=== PATIENT | female | born 1990 | race Caucasian/White ===

== ENCOUNTER 2017-01-25 18:24 | Emergency (ER) | payer OTHER ==
[~2017-01-25] VITALS: Ht 167.6 cm; Wt 76.0 kg
[~2017-01-25 18:24] MED LIST: FERR240T9 PO; PREN1TAB49 PO
[2017-01-25 18:51] VITALS: Ht 167.6 cm; Wt 76.0 kg
[2017-01-25] MEDS ORDERED: LIDOCAINE 1% (MDV) 20 ML INJ SC ONE (20:00)
[2017-01-25] MEDS ORDERED: IBUP-1542 PO (21:19)
[2017-01-25] MEDS ORDERED: CEPH-443 PO (21:19)
[2017-01-25] MEDS ORDERED: SULF1TAB31 PO (21:19)
--- NOTE | 2017-01-25 22:24 | ERD ---
ER Documentation Chief Complaint Date/Time DATE: 01/25/17 TIME: 22:20 Chief Complaint abscess left chin HPI 26-year-old female patient with no significant past medical history presents to the ED complaining of an abscess noted on the left jawline area that started intermittently 5 months ago. Reports that got worse a few days ago. States it started to itch and to smell bad. States that she did have a previous history of an abscess in her left axillary region. Reports that went away with antibiotics. States that this abscess in her left jawline became painful. Denies any chest pain, shortness of breath, abdominal pain, nausea, vomiting, fever, chills, dysphagia, odynophagia. ROS All systems reviewed and are negative except as per history of present illness. Medications Home Meds Active Scripts Ibuprofen* (Motrin*) 600 Mg Tab, 600 MG PO Q6, #30 TAB Prov:CLEOPATRA SUTHERLAND PA-C 01/25/17 Cephalexin* (Keflex*) 500 Mg Capsule, 500 MG PO QID for 7 Days, CAP Prov:CLEOPATRA SUTHERLAND PA-C 01/25/17 Sulfamethoxazole/Trimethoprim* (Bactrim Ds* Tablet) 1 Each Tablet, 1 TAB PO BID , #14 TAB Prov:CLEOPATRA SUTHERLAND PA-C 01/25/17 Reported Medications Ferrous Gluconate (Iron) 1 Tab Tablet, 1 TAB PO DAILY, TAB 01/31/16 Vits W-Ca,Fe,Fa(<1MG) () 1 Tab Tablet, 1 TAB PO DAILY 11/25/12 Allergies Allergies: Coded Allergies: No Known Allergy (Unverified , 05/14/16) PMhx/Soc History of Surgery: Yes ( X 3.) Anesthesia Reaction: No Hx Neurological Disorder: No Hx Respiratory Disorders: No Hx Cardiac Disorders: No Hx Psychiatric Problems: No Hx Miscellaneous Medical Probl: No Hx Alcohol Use: No Hx Substance Use: No Hx Tobacco Use: No Smoking Status: Never smoker Physical Exam Vitals Vital Signs Date Time Temp Pulse Resp B/P Pulse Ox O2 Delivery O2 Flow Rate FiO2 01/25/17 18:51 99.1 83 20 126/75 100 Physical Exam Const: [id number], well-nourished. In no acute distress. Head: Atraumatic, normocephalic Eyes: Normal Conjunctiva without injection. No purulent discharge. PERRL. EOMI ENT: Normal external ear. Ear canal without erythema. Tympanic membrane pearly kaur without effusion or bulging. Nasal canal clear with normal turbinates. Moist oropharynx without tonsillar exudates. Non-erythematous pharynx. Uvula midline. No drooling. No trismus. Neck: Full range of motion. No meningismus. No cervical lymphadenopathy. Resp: Clear to auscultation bilaterally. No wheezing, rhonchi, rales, or crackles. No accessory muscle use. No retractions. Cardio: Regular rate and rhythm. No murmurs, rubs or gallops. Abd: Soft, non tender, non distended. Normal bowel sounds. No palpable masses. No rebound tenderness. No guarding. Skin: No petechiae or rashes. 3 cm fluctuant abscess noted on the left jawline inferior to the left ear. Erythematous but no edema noted. No lymphatic streaking. No induration. Minimal bleeding noted. Slight punctate with spontaneous drainage noted. Back: No midline tenderness. No CVA tenderness. Ext: No cyanosis, or edema. Neur: Awake and alert. Psych: Normal Mood and Affect Results 24 hrs Current Medications Medications (Trade) Dose Ordered Sig/Benjy Route PRN Reason Start Time Stop Time Status Last Admin Dose Admin Lidocaine (Xylocaine 1% (Mdv) 20 ml) 20 ml ONCE ONCE SC 01/25/17 20:00 01/25/17 20:01 DC Procedures/MDM This is a 26-year-old female patient with no significant past medical history presents the ED complaining of a left jawline abscess that occurred intermittently 5 months ago and got worse in last few days. Patient is afebrile and nontoxic-appearing. Patient has normal vital signs. Patient gave consent to perform incision and drainage. 11 blade scalpel used to make a small incision. Abscess Incision and Drainage with irrigation by me: Location: [Left jawline inferior to left ear] Anesthesia: [2 cc Local 2% Lidocaine] Technique: [Irrigated. Disrupted loculations w/ instrumentation ] Packing: [None] Complications: [Neurovascularly intact post procedure] Copious purulent discharge drained from the abscess. Low suspicion for scabies, SJS/TEN, erythema multiforme, sepsis, cellulitis, necrotizing fascitis, lymphadenitis, lymphoma, gangrene, meningococcemia or other emergent conditions. This case is discussed with my supervising physician , Dr. Moreno who agreed with the management and discharge plan. Keflex and Bactrim was prescribed to patient. Instructed patient to return to the ED sooner for any worsening symptoms. Follow up with primary care physician or return to the ED in 2 days for a wound check. Patient's questions were answered. Patient understood and agreed with discharge plan. Departure Diagnosis: Primary Impression: Abscess Condition: Stable Patient Instructions: Abscess, Incision And Drainage Referrals: [facility] (PCP) [facility] YOU HAVE RECEIVED A MEDICAL SCREENING EXAM AND THE RESULTS INDICATE THAT YOU DO NOT HAVE A CONDITION THAT REQUIRES URGENT TREATMENT IN THE EMERGENCY DEPARTMENT. FURTHER EVALUATION AND TREATMENT OF YOUR CONDITION CAN WAIT UNTIL YOU ARE SEEN IN YOUR DOCTORS OFFICE WITHIN THE NEXT 1-2 DAYS. IT IS YOUR RESPONSIBILITY TO MAKE AN APPOINTMENT FOR FOLOW-UP CARE. IF YOU HAVE A PRIMARY DOCTOR --you should call your primary doctor and schedule an appointment IF YOU DO NOT HAVE A PRIMARY DOCTOR YOU CAN CALL OUR PHYSICIAN REFERRAL HOTLINE AT IF YOU CAN NOT AFFORD TO SEE A PHYSICIAN YOU CAN CHOSE FROM THE FOLLOWING [facility] [address] [facility]. [facility] [address] [facility]. [facility] [address] [facility] [facility] [address] [facility] [address] [facility]. [facility]. [address] [facility]. [facility] YOU HAVE RECEIVED A MEDICAL SCREENING EXAM AND THE RESULTS INDICATE THAT YOU DO NOT HAVE A CONDITION THAT REQUIRES URGENT TREATMENT IN THE EMERGENCY DEPARTMENT. FURTHER EVALUATION AND TREATMENT OF YOUR CONDITION CAN WAIT UNTIL YOU ARE SEEN IN YOUR DOCTORS OFFICE WITHIN THE NEXT 1-2 DAYS. IT IS YOUR RESPONSIBILITY TO MAKE AN APPOINTMENT FOR FOLOW-UP CARE. IF YOU HAVE A PRIMARY DOCTOR --you should call your primary doctor and schedule and appointment IF YOU DO NOT HAVE A PRIMARY DOCTOR YOU CAN CALL OUR PHYSICIAN REFERRAL HOTLINE AT . IF YOU CAN NOT AFFORD TO SEE A PHYSICIAN YOU CAN CHOSE FROM THE FOLLOWING [facility] INSTITUTIONS: [facility] [address] [place] [address] [facility] [address] [place] [address] [facility] [address] [place] [address] [facility]CIALT[facility] Additional Instructions: Follow up in 2 days in your clinic for wound check. Call your primary care doctor TOMORROW for an appointment during the next 2-3 days.See the doctor sooner or return here if your condition worsens before your appointment time. CLEOPATRA SUTHERLAND PA-C Jan 25, 2017 22:24 CLEOPATRA SUTHERLAND PA-C Jan 25, 2017 22:24
== END 2017-01-25 21:29 | disposition home or self-care (01) ==
LOC: FTE 18:24
DX: L02.01 Cutaneous abscess of face (principal)
CPT/HCPCS: 10061; Z7502; Z7610

== ENCOUNTER 2019-02-06 19:32 | Emergency (ER) | payer OTHER ==
[~2019-02-06] VITALS: Ht 154.9 cm; Wt 79.0 kg
[~2019-02-06 19:32] MED LIST changes: +CEPH-443 PO; +IBUP-1542 PO; +SULF1TAB31 PO
[2019-02-06 19:40] VITALS: Ht 154.9 cm; Wt 79.0 kg
--- NOTE | 2019-02-06 20:19 | ERD ---
ER Documentation Chief Complaint Chief Complaint abd pain x 2 days, found out she is , denies vb HPI Patient is a 28 years old female with past medical history of tubal ligation in 2017 presenting to the clinic for abdominal pains X 2 days. Patient rates her pain as 4 out of 10 and states that she had a positive result yesterday. Patient admits to buying [id number] test from the pharmacy. Patient denies fever, chills, night sweats, nausea, emesis, constipation, hematochezia. Patient admits to dysuria but denies bladder fullness, urinary frequency, and vaginal discharge. Patient reports history of with IUDs in the past. ROS All systems reviewed and are negative except as per history of present illness. Medications Home Meds Active Scripts Ibuprofen* (Motrin*) 800 Mg Tab, 800 MG PO Q6, #30 TAB Prov:MARILYN ZAMBRANO PA-C 02/06/19 Nitrofurantoin Monohyd Macrocr* (Macrobid*) 100 Mg Capsr, 100 MG PO BID for 7 Days, #14 CAP Prov:MARILYN ZAMBRANO PA-C 02/06/19 Ibuprofen* (Motrin*) 600 Mg Tab, 600 MG PO Q6, #30 TAB Prov:CLEOPATRA SUTHERLAND PA-C 01/25/17 Cephalexin* (Keflex*) 500 Mg Capsule, 500 MG PO QID for 7 Days, CAP Prov:CLEOPATRA SUTHERLAND PA-C 01/25/17 Sulfamethoxazole/Trimethoprim* (Bactrim Ds* Tablet) 1 Each Tablet, 1 TAB PO BID, #14 TAB Prov:CLEOPATRA SUTHERLAND PA-C 01/25/17 Reported Medications Ferrous Gluconate (Iron) 1 Tab Tablet, 1 TAB PO DAILY, TAB 01/31/16 Vits W-Ca,Fe,Fa(<1MG) () 1 Tab Tablet, 1 TAB PO DAILY 11/25/12 Allergies Allergies: Coded Allergies: No Known Allergy (Unverified , 02/06/19) PMhx/Soc History of Surgery: Yes ( X 3.) Anesthesia Reaction: No Hx Neurological Disorder: No Hx Respiratory Disorders: No Hx Cardiac Disorders: No Hx Psychiatric Problems: No Hx Miscellaneous Medical Probl: No Hx Alcohol Use: No Hx Substance Use: No Hx Tobacco Use: No Smoking Status: Never smoker FmHx Family History: No diabetes, No coronary disease, No other Physical Exam Vitals Vital Signs Date Temp Pulse Resp B/P (MAP) Pulse Ox O2 O2 Flow FiO2 Time Delivery Rate 02/06/19 100.0 87 18 126/81 100 19:40 (96) Physical Exam Const: No acute distress Head: Atraumatic Eyes: Normal Conjunctiva Resp: Clear to auscultation bilaterally Cardio: Regular rate and rhythm, no murmurs Abd: Soft, non tender, non distended. Normal bowel sounds. Negative Del Toro sign, Rovsing sign, McBurney's point tenderness, no guarding, negative rebound tenderness, negative Martel Posey sign, negative Marcus sign. Skin: No petechiae or rashes Back: No midline or flank tenderness, negative CVAT. Ext: No cyanosis, or edema Neur: Awake and alert Psych: Normal Mood and Affect Result Diagram: 02/06/19201902/06/192019 Results 24 hrs Laboratory Tests Test 02/06/19 20:04 02/06/19 20:12 02/06/19 20:20 Urine Color YELLOW Urine Clarity CLOUDY Urine pH 6.0 Urine Specific Catlett 1.019 Urine Ketones NEGATIVE mg/dL Urine Nitrite POSITIVE mg/dL Urine Bilirubin NEGATIVE mg/dL Urine Urobilinogen NEGATIVE mg/dL Urine Leukocyte Esterase 3+ Jennifer/ul Urine Microscopic RBC 24 /HPF Urine Microscopic WBC > 182 /HPF Urine Squamous Epithelial Cells FEW /HPF Urine Bacteria MODERATE /HPF Urine Mucus FEW /HPF Urine Hemoglobin NEGATIVE mg/dL Urine Glucose NEGATIVE mg/dL Urine Total Protein 1+ mg/dl POC Beta HCG, Qualitative NEGATIVE White Blood Count 10.1 10^3/ul Red Blood Count 4.89 10^6/ul Hemoglobin 12.7 g/dl Hematocrit 39.8 % Mean Corpuscular Volume 81.4 fl Mean Corpuscular Hemoglobin 26.0 pg Mean Corpuscular 31.9 g/dl Hemoglobin Concent Red Cell Distribution Width 18.3 % Platelet Count 250 10^3/UL Mean Platelet Volume 9.9 fl Immature Granulocytes % 0.300 % Neutrophils % 77.2 % Lymphocytes % 15.2 % Monocytes % 5.8 % Eosinophils % 1.2 % Basophils % 0.3 % Nucleated Red Blood Cells % 0.0 /100WBC Immature Granulocytes # 0.030 10^3/ul Neutrophils # 7.8 10^3/ul Lymphocytes # 1.5 10^3/ul Monocytes # 0.6 10^3/ul Eosinophils # 0.1 10^3/ul Basophils # 0.0 10^3/ul Nucleated Red Blood Cells # 0.0 10^3/ul Sodium Level 144 mmol/L Potassium Level 3.7 mmol/L Chloride Level 108 mmol/L Carbon Dioxide Level 26 mmol/L Anion Gap 10 Blood Urea Nitrogen 14 mg/dl Creatinine 0.78 mg/dl Est Glomerular Filtrat > 60 mL/min Rate mL/min Glucose Level 98 mg/dl Calcium Level 9.6 mg/dl Total Bilirubin 0.3 mg/dl Direct Bilirubin 0.00 mg/dl Indirect Bilirubin 0.3 mg/dl Aspartate Amino Transf (AST/SGOT) 17 IU/L Alanine 15 IU/L Aminotransferase (ALT/SGPT) Alkaline Phosphatase 60 IU/L Total Protein 8.1 g/dl Albumin 4.5 g/dl Globulin 3.60 g/dl Albumin/Globulin Ratio 1.25 Serum HCG, Qualitative NEGATIVE Current Medications Medications Dose Sig/Benjy Start Time Status Last (Trade) Ordered Route PRN Stop Time Admin Dose Reason Admin 650 mg ONCE ONCE 02/06/19 DC 02/06/19 Acetaminophen PO 20:30 02/06/19 20:38 (Tylenol 20:31 Tab) Procedures/MDM Patient was seen and evaluated for abdominal pain and dysuria. CBC, CMP, urinalysis revealed leukocyte esterase and urine WBC otherwise unremarkable. Urine is negative. Serum is negative. Pelvic ultrasound revealed small left ovarian cyst. Patient is stable and ready for discharge. F/U with PCP and [employer]. Patient will be discharged with Macrobid and ibuprofen. Ultrasound report handed to patient. Departure Diagnosis: Primary Impression: UTI (urinary tract infection) Urinary tract infection type: site unspecified Hematuria presence: without hematuria Qualified Codes: N39.0 - Urinary tract infection, site not specified Additional Impression: Ovarian cyst Laterality: left Qualified Codes: N83.202 - Unspecified ovarian cyst, left side Patient Instructions: Ovarian Cyst, Understanding Urinary Tract Infections (UTIs) Referrals: [facility] Additional Instructions: Patient advised to return to the ED immediately for new or worsening symptoms. Patient advised to follow up with primary care provider in the next 24-48 hours. Patient verbalized understanding and agrees with treatment plan and course of action. If patient has no primary care they may follow up with [facility] + [place] [address] [place] [phone] or [facility] [id number] [place] [phone] or [facility] [address] [place] [address] MARILYN ZAMBRANO PA-C Feb 06, 2019 20:18
[2019-02-06] MEDS ORDERED: ACETAMINOPHEN 325 MG TAB PO ONE (20:30)
[2019-02-06] MEDS ORDERED: NITR-58 PO (22:03)
[2019-02-06] MEDS ORDERED: IBUP800T48 PO (22:04)
[2019-02-06 22:24] VITALS: BP 124/73; PULSE 63; RESP 18
== END 2019-02-06 22:25 | disposition home or self-care (01) ==
LOC: FTE 19:32
DX: N39.0 Urinary tract infection, site not specified (principal); N83.202 Unspecified ovarian cyst, left side; R10.2 Pelvic and perineal pain
CPT/HCPCS: 76856; 80053; 81001; 81025; 84703; 85025; Z7610; 36415